=== PATIENT | male | born 1980 ===

== ENCOUNTER → 2019-02-20 | Outpatient (CLI) | payer MEDICAID ==
--- NOTE | 2019-02-20 17:19 | Diagnostic Imaging Report ---
INDICATION: Left wrist pain. TIME OF EXAM: 05:00 p.m. FINDINGS: Three views of the left wrist were obtained. Distal radius and ulna are intact. Carpus is intact. Metacarpals are unremarkable. No fractures are seen. IMPRESSION: No acute bony abnormality is detected. Dictated by: Dictated on workstation # [id number]
== END ==
LOC: RAD 16:47
PROVIDERS: ATTEND Nurse Practitioner Family
DX: M25.532 Pain in left wrist (principal)
CPT/HCPCS: 73110

== ENCOUNTER → 2020-01-31 | Outpatient (CLI) | payer MEDICAID ==
[~2020-01-31] MED LIST: CATHETER FLUSH 10 ML SYR IV PRN
--- NOTE | 2020-01-31 11:50 | Diagnostic Imaging Report ---
INDICATION: Right upper quadrant pain. Patient was administered 5.0 mCi technetium 99m Choletec intravenously and imaging over the abdomen was performed. After 60 minutes patient ingested one can of ensure and gallbladder ejection fraction was calculated. There is homogeneous uptake of activity by the liver. There is prompt excretion of activity into the common duct and gallbladder. Normal passage of activity into the small bowel is noted. Gallbladder ejection fraction is normal at 58%. IMPRESSION: Normal HIDA scan and gallbladder ejection fraction. Dictated by: Dictated on workstation # [id number]
== END ==
LOC: CARD 08:46
PROVIDERS: ATTEND Pediatrics
DX: R10.11 Right upper quadrant pain (principal)
CPT/HCPCS: 78227